=== PATIENT | male | born 1940 | race Caucasian/White ===

== ENCOUNTER → 2020-04-05 09:39 | Outpatient (BNVA) | payer MEDICARE, SELFPAY | PROVIDERS: Family Provider Urology; PCP Family Medicine; Visit Provider Urology | DX: N40.1 Benign prostatic hyperplasia with lower urinary tract symptoms (principal); R33.9 Retention of urine, unspecified | CPT/HCPCS: 81001 ==

== ENCOUNTER → 2021-09-10 08:12 | Outpatient (BNVA) | payer MEDICARE, SELFPAY | PROVIDERS: PCP Family Medicine; Visit Provider Nurse Practitioner Family | DX: N40.1 Benign prostatic hyperplasia with lower urinary tract symptoms (principal); R33.9 Retention of urine, unspecified | CPT/HCPCS: 81003 ==

== ENCOUNTER 2022-01-17 17:11 | Emergency (ER) | payer MEDICARE, SELFPAY ==
[2022-01-17 17:23] VITALS: BP 172/90; PULSE 71; RESP 18; TEMP 36.7; O2SAT 95
--- NOTE | 2022-01-17 17:29 | USR_ITS ---
PROCEDURE INFORMATION: Exam: US Duplex Left Lower Extremity Veins, Limited Exam date and time: 01/17/2022 7:33 PM Age: 81 years old Clinical indication: Pain; Leg, upper; Concern for dvt, tenderness along vein left thigh TECHNIQUE: Imaging protocol: Real-time Duplex ultrasound of the Left Lower Extremity with 2-D caldwell scale, color Doppler flow and spectral waveform analysis with image documentation. Limited exam focused on the left lower extremity veins. [place] [facility] [place] 01/26/2018 10:41 AM FINDINGS: Left deep veins: Noncompressible occlusive thrombus in the popliteal vein extending into the paired peroneal and posterior tibial calf veins with no color Doppler flow or augmentation. The common femoral, femoral, proximal profunda femoral veins are patent without thrombus. Left superficial veins: Unremarkable. Saphenofemoral junction is patent without thrombus. Soft tissues: Unremarkable. US/[place] [id number] IMPRESSION: Occlusive DVT in the left popliteal vein extending into the calf veins.
--- NOTE | 2022-01-17 17:32 | ED_ITS ---
HPI - General Adult General: Chief complaint: General Medical Stated complaint: left leg pain Time Seen by Provider: 01/17/22 17:29 History of Present Illness: 81-year-old male patient comes in today with left thigh pain. Patient reports that he has had pain and discomfort for about 5 days now in his thigh and traces it along a vein in his thigh. Patient does have a history of a DVT in his right leg. Patient appears well. Patient appears in no acute distress. Patient takes 81 mg aspirin a day. Associated symptoms: Deny chest pain or dyspnea Review of Systems General: Reports: 10 or more systems reviewed and unremarkable except in HPI and below Const: Denies: fever(s) Card: Denies: chest pain Resp: Denies: dyspnea Musc: Reports: extremity pain PFSH ED PFSH: Medical History BPH loc w urin obs/LUTS Chronic prostatitis Elevated PSA HTN (hypertension) Incomplete bladder emptying Family History Father , AT AGE 67 LUNG CANCER Cancer Mother , AT AGE 93 CAD (coronary artery disease) Social History Smoking and tobacco status: former smoker Alcohol intake: current Alcohol intake frequency: 0-2 Drinks per Day Adopted: No Caregiver/support person: No Lives independently: No Household members: spouse Marital status: Current occupational status: retired Physical Exam Const: COMMON NORMALS: alert HENMT: COMMON NORMALS: atraumatic HEAD & SCALP: atraumatic Neck/C-Spine: COMMON NORMALS: full ROM Resp: COMMON NORMALS: normal respiratory effort and clear to auscultation bilaterally AUSCULTATION: clear to auscultation bilaterally Cardio: COMMON NORMALS: regular rate and regular rhythm RATE: regular rate RHYTHM: regular rhythm GI: COMMON NORMALS: non-tender Extremity: LEFT LOWER EXTREMITY: Yes upper leg (Tenderness along a ropey vein) Left upper leg: Yes inspection, Yes palpation and Yes neurovascular exam and Yes lower leg (No calf pain, no popliteal angle pain) Left lower leg: Yes inspection, Yes palpation and Yes neurovascular exam Neuro: SENSORIUM/ORIENTATION: Yes alert Course Vital Signs: Vital signs: Vital Signs Temperature 98.1 F 01/17/22 17:23 Pulse Rate 71 01/17/22 17:23 Respiratory Rate 18 01/17/22 17:23 Blood Pressure 172/90 01/17/22 17: Pulse Oximetry 95 01/17/22 17:23 MDM - General Adult Medical Decision Making 81-year-old male comes in today with complaints of venous tenderness to the left upper leg. Patient reports he can palpate the tenderness along a vessel in his left upper leg. Patient has a history of previous DVT in the right leg though. Patient appears well. Patient appears in no acute distress. Vital signs are normal. Differential diagnosis includes but not limited to DVT, varicose veins, phlebitis. Ultrasound was completed on the left lower extremity and noted the popliteal occlusive venous thrombus. Patient was placed on Eliquis 10 mg and then as directed. Patient was recommended to follow-up with primary care for further treatment. Recommend return to the ER for new concerns such as chest pain, shortness of breath. Lab Data : 01/17/22 18:30 01/17/22 18:30 Radiology Impressions Venous Duplex 01/17/22 17:29 IMPRESSION: Occlusive DVT in the left popliteal vein extending into the calf veins. Laboratory Results WBC 8.7 10^3/uL (4.0-10.0) 01/17/22 18: RBC 4.93 10^6/uL (4.1-5.3) 01/17/22 18:30 Hgb 14.7 g/dL (11.7-16.6) 01/17/22 18: Hct 42.7 % (42.0-52.0) 01/17/22 18: MCV 86.6 fl (80-94) 01/17/22 18:30 MCH 29.8 pg (28.0-34.0) 01/17/22 18: MCHC 34.4 g/dL (30.0-36.0) 01/17/22 18: RDW 13.5 % (12.1-15.1) 01/17/22 18:30 Plt Count 220 10^3/cmm (130-400) 01/17/22 18: MPV 9.8 fL (7.4-10.4) 01/17/22 18: Neut % (Auto) 54.1 % 01/17/22 18:30 Lymph % (Auto) 31.2 % 01/17/22 18:30 [place] % (Auto) 8.8 % 01/17/22 18:30 Eos % (Auto) 4.8 % 01/17/22 18:30 Baso % (Auto) 0.6 % 01/17/22 18:30 Neut # (Auto) 4.73 10^3/uL (1.8-7.7) 01/17/22 18:30 Lymph # (Auto) 2.7 10^3/uL (0.8-4.8) 01/17/22 18:30 [place] # (Auto) 0.8 10^3/uL (0.2-0.9) 01/17/22 18:30 Eos # (Auto) 0.4 10^3/uL (0.0-0.8) 01/17/22 18:30 Baso # (Auto) 0.1 10^3/uL (0.0-0.1) 01/17/22 18:30 Nucleated RBC % (auto) 0 % 01/17/22 18:30 Nucleated RBCs # 0.0 /100WBC 01/17/22 18:30 Sodium 136 mmol/L (136-145) 01/17/22 18:30 Potassium 4.1 mmol/L (3.5-5.1) 01/17/22 18:30 Chloride 102 mmol/L (98-107) 01/17/22 18:30 Carbon Dioxide 22 mmol/L (22-29) 01/17/22 18:30 Anion Gap 16.1 (5-19) 01/17/22 18:30 BUN 16 mg/dL (8-23) 01/17/22 18:30 Creatinine 0.7 mg/dL (0.7-1.2) 01/17/22 18:30 GFR Calculation Not Reportable 01/17/22 18: Glucose 100 mg/dL (65-115) 01/17/22 18: Calculated Osmolality 283 mOsm/kg (285-295) L 01/17/22 18:30 Calcium 9.1 mg/dL (8.5-10.5) 01/17/22 18:30 Total Bilirubin 0.2 mg/dL (0.15-1.2) 01/17/22 18:30 AST 14 U/L (0-40) 01/17/22 18:30 ALT 18 U/L (0-41) 01/17/22 18:30 Alkaline Phosphatase 69 IU/L (40-130) 01/17/22 18:30 Total Protein 7.1 g/dL (6.6-8.7) 01/17/22 18:30 Albumin 4.2 g/dL (3.5-5.2) 01/17/22 18:30 Globulin 2.9 g/dL (1.3-4.6) 01/17/22 18:30 Discharge Plan Discharge Patient Disposition: Home Clinical Impression: Acute deep vein thrombosis (DVT) of popliteal vein of left lower extremity Condition: Stable Prescriptions: New [place] DVT-PE Treat 30D Start 5 mg (74 tabs) tablets,dose pack See Rx Instructions .ROUTE .COMPLEX Qty: 74 0RF Rx Instructions: orally per package directions No Action calcium carbonate [Calcium 600] 600 mg calcium (1,500 mg) tablet 600 mg PO DAILY 0RF citalopram 40 mg tablet 40 mg PO DAILY 0RF ascorbic acid (vitamin C) 1,000 mg tablet 1,000 mg PO DAILY 0RF Complete Multivitamin Tablet 1 tab PO DAILY 0RF metoprolol succinate 100 mg tablet extended release 24 hr 25 mg PO DAILY 0RF losartan 25 mg tablet 25 mg PO DAILY 0RF finasteride 5 mg tablet 5 mg PO DAILY Qty: 90 3RF alfuzosin 10 mg tablet extended release 24 hr 10 mg PO DAILY Qty: 90 3RF Discharge Orders: Discharge ED (Routine); Ordered 01/17/22 Ordered By: Eagle G[place]am Referrals: Iker Maya MD [Primary Care Provider] - Discharge Diet: Usual diet Discharge Activity: Increase activity as tolerated Patient Instructions: Deep Vein Thrombosis (ED) Activity Restrictions/Additional Instructions: With primaryHome and rest. Take medications as directed. Light activity. He care in 1 week for recheck. Return to ER for chest pain, increased shortness of breath, or new concerns. Coding Level of Care Code ED Metal Stamping Machine Operator for Anil Fwd Exam Detailed
[2022-01-17 18:42] LABS: Basophils # 0.1 10^3/uL (0.0-0.1); Basophils % 0.6 %; Eosinophils # 0.4 10^3/uL (0.0-0.8); Eosinophils % 4.8 %; Hematocrit 42.7 % (42.0-52.0); Hemoglobin 14.7 g/dL (11.7-16.6); Lymphocytes # 2.7 10^3/uL (0.8-4.8); Lymphocytes % 31.2 %; Mean Corpuscular HGB Conc 34.4 g/dL (30.0-36.0); Mean Corpuscular Hemoglobin 29.8 pg (28.0-34.0); Mean Corpuscular Volume 86.6 fl (80-94); Mean Platelet Volume 9.8 fL (7.4-10.4); Monocytes # 0.8 10^3/uL (0.2-0.9); Monocytes % 8.8 %; Neutrophils # 4.73 10^3/uL (1.8-7.7); Neutrophils % 54.1 %; Nucleated Red Blood Cells % 0 %; Platelet Count 220 10^3/cmm (130-400); Red Blood Count 4.93 10^6/uL (4.1-5.3); Red Cell Distribution Width 13.5 % (12.1-15.1); White Blood Count 8.7 10^3/uL (4.0-10.0)
[2022-01-17 18:57] LABS: Alanine Aminotransferase 18 U/L (0-41); Albumin Level 4.2 g/dL (3.5-5.2); Alkaline Phosphatase 69 IU/L (40-130); Anion Gap 16.1 (5-19); Aspartate Amino Transferase 14 U/L (0-40); Blood Urea Nitrogen 16 mg/dL (8-23); Calcium 9.1 mg/dL (8.5-10.5); Carbon Dioxide 22 mmol/L (22-29); Chloride 102 mmol/L (98-107); Globulin 2.9 g/dL (1.3-4.6); Glucose 100 mg/dL (65-115); Osmolality Calculated 283 mOsm/kg (285-295); Potassium 4.1 mmol/L (3.5-5.1); Sodium 136 mmol/L (136-145); Total Bilirubin 0.2 mg/dL (0.15-1.2); Total Protein 7.1 g/dL (6.6-8.7)
[2022-01-17] MEDS: apixaban 5 mg Tablet 10 MG PO (21:06)
== END 2022-01-17 21:07 | disposition home or self-care (01) ==
PROVIDERS: Emergency Provider Nurse Practitioner Family; PCP Family Medicine
DX: I82.432 Acute embolism and thrombosis of left popliteal vein (principal); I10 Essential (primary) hypertension; Z87.891 Personal history of nicotine dependence
CPT/HCPCS: 80053; 85025; 93971; 99283

== ENCOUNTER → 2022-05-21 14:46 | Outpatient (BNVA) | payer MEDICARE, SELFPAY | PROVIDERS: PCP Family Medicine; Visit Provider Urology | DX: N40.1 Benign prostatic hyperplasia with lower urinary tract symptoms (principal) | CPT/HCPCS: 36415; 51741; 51798; 81003; 84153; 99213 ==

== ENCOUNTER 2022-11-17 08:47 | Emergency (ER) | payer MEDICARE, SELFPAY ==
[2022-11-17 08:48] VITALS: BP 158/80; PULSE 56; RESP 14; TEMP 36; O2SAT 99; BMI 33.3
--- NOTE | 2022-11-17 09:17 | CTR_ITS ---
PROCEDURE INFORMATION: Exam: CT Head Without Contrast Exam date and time: 11/17/2022 9:29 AM Age: 81 years old Clinical indication: Dizziness; Additional info: Sudden onset dizziness TECHNIQUE: Imaging protocol: Computed tomography of the head without contrast. Radiation optimization: All CT scans at this facility use at least one of these dose optimization techniques: automated exposure control; mA and/or kV adjustment per patient size (includes targeted exams where dose is matched to clinical indication); or iterative reconstruction. REPORTING DATA: Count of CT and Cardiac NM exams in prior 12 months: This patient has received 0 known CTs and 0 known cardiac nuclear medicine studies in the 12 months prior to the current study. COMPARISON: No relevant prior studies available. RADIATION DOSE METRICS: Total DLP (mGy-cm): 1212.98 FINDINGS: Brain: Patchy hypoattenuation in the periventricular and subcortical white matter, consistent with chronic small vessel ischemia. No CT evidence of acute ischemia. No acute hemorrhage. No mass effect. Cerebral ventricles: No ventriculomegaly. Paranasal sinuses: Visualized sinuses are unremarkable. No fluid levels. Mastoid air cells: Visualized mastoid air cells are well aerated. Bones/joints: Unremarkable. No acute fracture. Soft tissues: Unremarkable. CT/CT head wo con* [id number] IMPRESSION: No acute intracranial abnormality. Please note that MRI is more sensitive for early changes of acute ischemia.
--- NOTE | 2022-11-17 09:20 | ED_ITS ---
HPI - Dizziness General: Chief Complaint: Dizziness Stated Complaint: DIZZY Time Seen by Provider: 11/17/22 08:52 History of Present Illness: HPI Narrative: Patient presents to the ER by EMS with complaints of dizziness. Patient states the dizziness began last night after he woke up after sleeping in his chair. And when the patient went to bed and woke up this morning it was even worse. Patient complains of nausea. Patient symptoms are worse when he moves around. Blood sugars 121 per EMS patient denies chest pain or dyspnea MD elicited complaint: dizziness Onset (ago): day(s) (Yesterday) Timing: awoke with symptoms Severity: mild Description: sense of movement History of similar symptoms: No Exacerbating factors: movement/ambulation Relieving factors: nothing Associated symptoms: Reports no associated symptoms and nausea; Denies chest pain, chills or palpitations Associated neuro symptoms: Reports no associated symptoms Review of Systems General: Reports: 10 or more systems reviewed and unremarkable except in HPI and below Const: Denies: fever(s) or chills Eyes: Denies: change in vision ENMT: Denies: throat pain or odynophagia Card: Denies: chest pain or palpitations Resp: Denies: dyspnea or productive cough GI: Reports: nausea; Denies: abdominal pain PFSH ED PFSH: Medical History BPH loc w urin obs/LUTS Chronic prostatitis Elevated PSA HTN (hypertension) Incomplete bladder emptying Family History Father , AT AGE 67 LUNG CANCER Cancer Mother , AT AGE 93 CAD (coronary artery disease) Social History Smoking and tobacco status: former smoker Alcohol intake: current Alcohol intake frequency: few times a week Substance/Drug Use: unknown Adopted: No Caregiver/support person: No Lives independently: No Household members: spouse Marital status: Current occupational status: retired Physical Exam Const: COMMON NORMALS: no acute distress, average body habitus, patient oriented x3, no limitations, healthy appearing, alert and well nourished HENMT: COMMON NORMALS: normocephalic, atraumatic, hearing grossly normal bilaterally, external ears normal, Normal external nose present and moist oral mucous membranes HEAD & SCALP: normocephalic and atraumatic NOSE: Normal external nose present EXTERNAL EAR: Yes external ears normal Eye: COMMON NORMALS: Equal, round and reactive pupils present, EOMs intact bilaterally, conjunctivae normal and no scleral icterus CONJUNCTIVA: Yes conjunctivae normal PUPIL: Yes Equal, round and reactive pupils present Neck/C-Spine: COMMON NORMALS: full ROM, no lymphadenopathy, supple, no meningeal signs, no JVD and Thyroid normal THYROID: Thyroid normal Chest: COMMONS NORMALS: normal inspection of the chest and normal palpation of entire chest wall Resp: COMMON NORMALS: normal respiratory effort, No retractions, No use of accessory muscles and clear to auscultation bilaterally AUSCULTATION: clear to auscultation bilaterally Cardio: COMMON NORMALS: no JVD, regular rate, regular rhythm, S1 normal heart sound present and S2 normal heart sound present RATE: regular rate RHYTHM: regular rhythm HEART SOUNDS: S1 normal heart sound present and S2 normal heart sound present GI: COMMON NORMALS: Normal to inspection, nondistended, normoactive bowel sounds present, Soft to palpation, non-tender, No hepatosplenomegaly present and no masses PALPATION: Yes Soft to palpation and Yes No hepatosplenomegaly present : COMMON NORMALS: Yes no CVA tenderness BLADDER/KIDNEY EXAM: Yes no CVA tenderness Back/Pelvis: COMMON NORMALS: no CVA tenderness Neuro: COMMON NORMALS: patient oriented x3, CN's II-XII intact bilaterally, moves all extremities, no focal motor deficits and no sensory deficits noted SENSORIUM/ORIENTATION: Yes alert MENINGEAL SIGNS: Yes no meningeal signs Course Vital Signs: Vital signs: Vital Signs Temperature 96.8 F L 11/17/22 08:48 Pulse Rate 63 11/17/22 12:37 Respiratory Rate 18 11/17/22 12:37 Blood Pressure 122/83 11/17/22 12:37 Pulse Oximetry 95 11/17/22 12:37 Oxygen Delivery Me thod Room Air 11/17/22 08:48 MDM - Dizziness Medical Decision Making Patient presents to the with vertigo. Patient has no neurologic localizing findings. Lab work was obtained CBC was benign, CMP showed sodium of 126, head CT was no intracranial abnormality Differential Diagnosis Likely benign paroxysmal positional vertigo; Unlikely adverse reaction to drug, orthostatic hypotension, vertebral basilar insufficiency, cerebrovascular accident, acute vestibular neuronitis or transient cerebral ischemia Medical Records I reviewed the patient's medical records. Lab Data I reviewed the patient's lab results. 11/17/22 09:35 11/17/22 09:[address] 11/17/22 09:17 IMPRESSION: No acute intracranial abnormality. Please note that MRI is more sensitive for early changes of acute ischemia. Laboratory Results WBC 6.3 10^3/uL (4.0-10.0) 11/17/22 09:35 RBC 4.61 10^6/uL (4.1-5.3) 11/17/22 09:35 Hgb 13.9 g/dL (11.7-16.6) 11/17/22 09:35 Hct 42.7 % (42.0-52.0) 11/17/22 09:35 MCV 92.6 fl (80-94) 11/17/22 09:35 MCH 30.2 pg (28.0-34.0) 11/17/22 09:35 MCHC 32.6 g/dL (30.0-36.0) 11/17/22 09:35 RDW 13.3 % (12.1-15.1) 11/17/22 09:35 Plt Count 210 10^3/cmm (130-400) 11/17/22 09:35 MPV 10.0 fL (7.4-10.4) 11/17/22 09:35 Neut % (Auto) 58.3 % 11/17/22 09:35 Lymph % (Auto) 25.2 % 11/17/22 09:35 [place] % (Auto) 10.6 % 11/17/22 09:35 Eos % (Auto) 4.8 % 11/17/22 09:35 Baso % (Auto) 0.8 % 11/17/22 09:35 Neut # (Auto) 3.68 10^3/uL (1.8-7.7) 11/17/22 09:35 Lymph # (Auto) 1.6 10^3/uL (0.8-4.8) 11/17/22 09:35 [place] # (Auto) 0.7 10^3/uL (0.2-0.9) 11/17/22 09:35 Eos # (Auto) 0.3 10^3/uL (0.0-0.8) 11/17/22 09:35 Baso # (Auto) 0.1 10^3/uL (0.0-0.1) 11/17/22 09:35 Nucleated RBC % (auto) 0 % 11/17/22 09:35 Nucleated RBCs # 0.0 /100WBC 11/17/22 09:35 PT 13.90 SECONDS (12.1-14.9) 11/17/22 09:35 INR 1.03 (0.8-1.2) 11/17/22 09:35 Sodium 126 mmol/L (136-145) L 11/17/22 09:35 Potassium 4.1 mmol/L (3.5-5.1) 11/17/22 09:35 Chloride 95 mmol/L (98-107) L 11/17/22 09:35 Carbon Dioxide 23 mmol/L (22-29) 11/17/22 09:35 Anion Gap 12.1 (5-19) 11/17/22 09:35 BUN 25 mg/dL (8-23) H 11/17/22 09:35 Creatinine 0.8 mg/dL (0.7-1.2) 11/17/22 09:35 GFR Calculation Not Reportable 11/17/22 09:35 Glucose 145 mg/dL (65-115) H 11/17/22 09:35 Calculated Osmolality 269 mOsm/kg (285-295) L 11/17/22 09:35 Calcium 8.6 mg/dL (8.5-10.5) 11/17/22 09:35 Total Bilirubin 0.3 mg/dL (0.15-1.2) 11/17/22 09:35 AST 15 U/L (0-40) 11/17/22 09:35 ALT 18 U/L (0-41) 11/17/22 09:35 Alkaline Phosphatase 62 U/L (40-130) 11/17/22 09:35 Total Protein 7.0 g/dL (6.6-8.7) 11/17/22 09:35 Albumin 4.0 g/dL (3.5-5.2) 11/17/22 09:35 Globulin 3.0 g/dL (1.3-4.6) 11/17/22 09:35 Urine Color Yellow (Yellow) 11/17/22 10:24 Urine Appearance Clear (CLEAR) 11/17/22 10:24 Urine pH 6 (5-7) 11/17/22 10:24 Ur Specific [place] 1.020 (1.005-1.030) 11/17/22 10:24 Urine Protein Neg (Negative) 11/17/22 10:24 Urine Glucose (UA) Norm (Normal) 11/17/22 10:24 Urine Ketones Negative (Negative) 11/17/22 10:24 Urine Blood Trace (Negative) H 11/17/22 10:24 Urine Nitrate Negative (Negative) 11/17/22 10:24 Urine Bilirubin Neg (Negative) 11/17/22 10:24 Urine Urobilinogen Norm mg/dL (Negative) 11/17/22 10:24 Ur Leukocyte Esterase Negative (Negative) 11/17/22 10:24 Urine RBC 0-4 /hpf (0-2) H 11/17/22 10:24 Urine WBC None /hpf (0-5) 11/17/22 10:24 Ur Squamous Epith Cells None /hpf (0-5) 11/17/22 10:24 Amorphous Sediment Not Reportable 11/17/22 10:24 Urine Bacteria None /hpf (NONE) 11/17/22 10:24 Discharge Plan Discharge Patient Disposition: Home Clinical Impression: Vertigo, Acute hyponatremia Condition: Stable Prescriptions: No Action citalopram 40 mg tablet 40 mg PO QAM ascorbic acid (vitamin C) 1,000 mg tablet 1,000 mg PO DAILY multivitamin Tablet 1 tab PO DAILY losartan 50 mg tablet 50 mg PO QPM metoprolol succinate 50 mg tablet extended release 24 hr 50 mg PO QPM Tylenol Ex Str Rapid Release 500 mg Tablet 500 - 1,000 mg PO Q6H PRN (Reason: Pain) Calcium 600 + D(3) 600 mg-10 mcg (400 unit) Tablet 2 tab PO DAILY Eliquis 5 mg tablet 5 mg PO BID finasteride 5 mg tablet 5 mg PO QPM alfuzosin 10 mg tablet extended release 24 hr 10 mg PO QPM Discharge Orders: Discharge ED (Routine); Ordered 11/17/22 Ordered By: Nate Calvillo Referrals: Iker Maya MD [Primary Care Provider] - 1 week Patient Instructions: Hyponatremia (ED), Vertigo (DC) Coding Level of Care Code ED Supervisor Car Installations for Anil Schaeffer
[2022-11-17 10:02] LABS: Basophils # 0.1 10^3/uL (0.0-0.1); Basophils % 0.8 %; Eosinophils # 0.3 10^3/uL (0.0-0.8); Eosinophils % 4.8 %; Hematocrit 42.7 % (42.0-52.0); Hemoglobin 13.9 g/dL (11.7-16.6); Lymphocytes # 1.6 10^3/uL (0.8-4.8); Lymphocytes % 25.2 %; Mean Corpuscular HGB Conc 32.6 g/dL (30.0-36.0); Mean Corpuscular Hemoglobin 30.2 pg (28.0-34.0); Mean Corpuscular Volume 92.6 fl (80-94); Monocytes # 0.7 10^3/uL (0.2-0.9); Monocytes % 10.6 %; Neutrophils # 3.68 10^3/uL (1.8-7.7); Neutrophils % 58.3 %; Nucleated Red Blood Cells % 0 %; Platelet Count 210 10^3/cmm (130-400); Red Blood Count 4.61 10^6/uL (4.1-5.3); Red Cell Distribution Width 13.3 % (12.1-15.1); White Blood Count 6.3 10^3/uL (4.0-10.0)
[2022-11-17 10:25] LABS: INR 1.03 (0.8-1.2)
[2022-11-17 10:36] LABS: Alanine Aminotransferase 18 U/L (0-41); Alkaline Phosphatase 62 U/L (40-130); Anion Gap 12.1 (5-19); Aspartate Amino Transferase 15 U/L (0-40); Blood Urea Nitrogen 25 mg/dL (8-23); Calcium 8.6 mg/dL (8.5-10.5); Carbon Dioxide 23 mmol/L (22-29); Chloride 95 mmol/L (98-107); Glucose 145 mg/dL (65-115); Osmolality Calculated 269 mOsm/kg (285-295); Potassium 4.1 mmol/L (3.5-5.1); Sodium 126 mmol/L (136-145); Total Bilirubin 0.3 mg/dL (0.15-1.2)
[2022-11-17 10:51] LABS: Add Urine Microscopic? YES; Bilirubin Urine Neg (Negative); Blood Urine Trace (Negative); Glucose Urine UA Norm (Normal); Ketones Urine Negative (Negative); Leukocyte Esterase Urine Negative (Negative); Nitrate Urine Negative (Negative); Protein Urine Neg (Negative); RBC Urine 0-4 /hpf (0-2); Urine Appearance Clear (CLEAR); Urine Color Yellow (Yellow); Urobilinogen Urine Norm (Negative); pH Urine 6 (5-7)
--- NOTE | 2022-11-17 11:32 | PC.PHAR ---
PT STATES HE TAKES CARE OF HIS OWN MEDICATIONS-PT STATES HE TAKES A BLOOD PRESSURE MEDICATION 2 TABS IN THE AM AND 1 TAB HS AND A CHOLESTEROL MEDICATION 1/2 TAB HS PT STATES HE IS UNSURE OF THE NAMES BUT STATES HIS SISTER SAAD WOULD BE ABLE TO TELL ME THE NAMES-PTS SISTER SAAD READ THE NAMES OF THE MEDICATIONS-
[2022-11-17 12:37] VITALS: BP 122/83; PULSE 63; RESP 18; O2SAT 95
== END 2022-11-17 12:37 | disposition home or self-care (01) ==
PROVIDERS: Emergency Provider Emergency Medicine; PCP Family Medicine
DX: R42 Dizziness and giddiness (principal); E87.1 Hypo-osmolality and hyponatremia; Z79.01 Long term (current) use of anticoagulants; I10 Essential (primary) hypertension; Z87.891 Personal history of nicotine dependence
CPT/HCPCS: 70450; 80053; 81001; 85025; 85610; 99285

== ENCOUNTER 2023-06-30 13:02 | Outpatient (CLI) | payer MEDICARE, SELFPAY ==
--- NOTE | 2023-06-30 13:16 | MM_ITS ---
WS: [id number] BILATERAL 3D TOMOSYNTHESIS DIGITAL DIAGNOSTIC MAMMOGRAPHY WITH CAD CLINICAL INFORMATION: RT BREAST PAIN HISTORY: RIGHT breast pain COMPARISON: None. TECHNIQUE: Bilateral CC, MLO, and ML views. FINDINGS: Scattered fibroglandular densities bilaterally. Increased subareolar tissue deep to the RIGHT greater than LEFT areola. Palpable marker overlying the RIGHT areola. RIGHT subareolar parenchymal tissue pa rtially compresses out on the spot compression view. Ultrasound of this area is pending. ULTRASOUND BREAST RIGHT TECHNIQUE: Ultrasound right breast focused area of concern. CLINICAL INFORMATION: RT BREAST PAIN FINDINGS: Ultrasound RIGHT breast deep to the areola. Shadowing parenchymal tissue deep to the RIGHT areola com patible with gynecomastia. No focal cystic or solid lesions to target for biopsy. IMPRESSION: MM/[place] [id number] BI-RADS: 2-Benign FOLLOW UP: See Report
== END 2023-06-30 13:03 | disposition home or self-care (01) ==
LOC: RAD 13:03
PROVIDERS: PCP Family Medicine; Visit Provider Family Medicine
DX: N64.4 Mastodynia (principal)
CPT/HCPCS: 76642; 77062; G0279

== ENCOUNTER 2023-07-18 00:27 | Emergency (ER) | payer MEDICARE, SELFPAY ==
[2023-07-18 00:30] VITALS: BP 114/82; PULSE 86; RESP 20; TEMP 37; O2SAT 97; BMI 33.3
--- NOTE | 2023-07-18 00:37 | XRR_ITS ---
PROCEDURE INFORMATION: Exam: XR Chest Exam date and time: 07/18/2023 12:46 AM Age: 82 years old Clinical indication: Cough and dyspnea and fever; Additional info: Cough, dyspnea, fever TECHNIQUE: Imaging protocol: Radiologic exam of the chest. Views: 1 view. COMPARISON: CR XR chest 2V* [id number] 10/25/2021 10:31 AM FINDINGS: Lungs: [id number] COPD. Diffuse interstitial lung scarring again seen. No consolidation. Mild venous congestion. Question lung base edema. Pleural spaces: Question minute pleural effusions. Heart/Mediastinum: The heart is mildly enlarged. Advanced diffuse vascular calcification noted. Bones/joints: Unremarkable. XR/XR chest 1V portable [id number] IMPRESSION: 1. Large heart with minimal venous congestion likely. 2. Question very small bilateral pleural effusions. Findings have progressed mildly from 10/25/2021.
[2023-07-18 00:43] LABS: Basophils % 0.4 %; Eosinophils # 0.7 10^3/uL (0.0-0.8); Eosinophils % 8.2 %; Hematocrit 42.4 % (37-53); Lymphocytes # 1.3 10^3/uL (0.8-4.8); Lymphocytes % 14.6 %; Mean Corpuscular HGB Conc 33.5 g/dL (30-55); Mean Corpuscular Hemoglobin 30.1 pg (27-33); Monocytes # 0.6 10^3/uL (0.2-0.9); Neutrophils # 5.96 10^3/uL (1.8-7.7); Neutrophils % 69.4 %; Nucleated Red Blood Cells % 0 %; Platelet Count 240 10^3/cmm (157-399); Red Blood Count 4.71 10^6/uL (3.85-5.65); Red Cell Distribution Width 13.5 % (12.1-15.1); White Blood Count 8.57 10^3/uL (3.29-11.43)
[2023-07-18 01:03] LABS: Alanine Aminotransferase 17 U/L (0-41); Albumin Level 3.9 g/dL (3.5-5.2); Alkaline Phosphatase 68 U/L (40-130); Anion Gap 18.1 (5-19); Aspartate Amino Transferase 16 U/L (0-40); Blood Urea Nitrogen 19 mg/dL (8-23); Carbon Dioxide 22 mmol/L (22-29); Chloride 98 mmol/L (98-107); Creatinine Clr Calc Pharmacy 80.4113; Globulin 3.3 g/dL (1.3-4.6); Glucose 215 mg/dL (65-115); Osmolality Calculated 287 mOsm/kg (285-295); Potassium 4.1 mmol/L (3.5-5.1); Sodium 134 mmol/L (136-145); Total Bilirubin 0.3 mg/dL (0.15-1.2); Total Protein 7.2 g/dL (6.6-8.7)
[2023-07-18 01:23] LABS: Influenza A by IFA negative (Negative); Influenza B by IFA negative (Negative); SARS Covid-2 Antigen negative (Negative)
--- NOTE | 2023-07-18 01:29 | W.ED.SOB ---
HPI - SOB/Dyspnea General: Chief Complaint: Shortness of Breath/Dyspnea Stated Complaint: Flu like symptoms Time Seen by Provider: 07/18/23 00:38 History of Present Illness: HPI Narrative: Patient brought in by EMS with flulike symptoms such as shortness of breath fever cough chills. Patient states he is all started today. Patient is currently being treated for UTI and is on Macrobid for this. 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 He also said he has not had a fever off and on the breaks with Tylenol. Patient does not have any history of having breathing treatments or needing oxygen at home. Review of Systems General: Reports: 10 or more systems reviewed and unremarkable except in HPI and below PFSH ED PFSH: Medical History BPH loc w urin obs/LUTS HTN (hypertension) Elevated PSA Incomplete bladder emptying Chronic prostatitis Family History Father , AT AGE 67 LUNG CANCER Cancer Mother , AT AGE 93 CAD (coronary artery disease) Social History Smoking and tobacco/nicotine status: former use of tobacco/nicotine Alcohol intake: current Alcohol intake frequency: few times a week Substance/Drug Use: unknown Adopted: No Caregiver/support person: No Lives independently: No Household members: spouse Marital status: Current occupational status: retired Physical Exam Const: COMMON NORMALS: no acute distress, average body habitus, patient oriented x3, no limitations, healthy appearing, alert and well nourished HENMT: COMMON NORMALS: normocephalic, atraumatic, hearing grossly normal bilaterally, external ears normal, Normal external nose present, moist oral mucous membranes and oropharynx normal HEAD & SCALP: normocephalic and atraumatic NOSE: Normal external nose present EXTERNAL EAR: Yes external ears normal Neck/C-Spine: COMMON NORMALS: no JVD Chest: COMMONS NORMALS: normal inspection of the chest and normal palpation of entire chest wall Resp: COMMON NORMALS: normal respiratory effort, No retractions, No use of accessory muscles and clear to auscultation bilaterally AUSCULTATION: clear to auscultation bilaterally Cardio: COMMON NORMALS: no JVD, regular rate, regular rhythm, S1 normal heart sound present, S2 normal heart sound present, No gallops present (Cardio), No clicks present (Cardio), No murmurs present (Cardio) and No rub (Cardio) RATE: regular rate RHYTHM: regular rhythm HEART SOUNDS: S1 normal heart sound present and S2 normal heart sound present GI: COMMON NORMALS: Normal to inspection, nondistended, normoactive bowel sounds present, Soft to palpation, non-tender, No hepatosplenomegaly present and no masses PALPATION: Yes Soft to palpation and Yes No hepatosplenomegaly present Neuro: COMMON NORMALS: patient oriented x3 SENSORIUM/ORIENTATION: Yes alert Course Vital Signs: Vital signs: Vital Signs Temperature 98.6 F 07/18/23 00:30 Pulse Rate 71 07/18/23 02:46 Respiratory Rate 20 H 07/18/23 00:30 Blood Pressure 138/61 07/18/23 02:46 Pulse Oximetry 95 07/18/23 02:46 Oxygen Delivery Me thod Room Air 07/18/23 02:46 Oxygen Flow Rate 2 07/18/23 00:30 MDM - SOB/Dyspnea Medical Decision Making Presents to the ER with complaints of shortness of breath. Patient had chest x-ray which showed minimal venous congestion, questionable very small bilateral pleural effusions, lab work including influenza and COVID test which were all essentially negative. Patient oxygen saturation was 95% or above on room air. Patient will be discharged home to follow-up with his PCP for further evaluation and treatment. Differential Diagnosis Unlikely acute exacerbation of chronic obstructive airways disease, congestive heart failure, community acquired pneumonia, asthma with exacerbation or pulmonary embolism Medical Records I reviewed the patient's medical records. Lab Data I reviewed the patient's lab results. 07/18/23 00:15 07/18/23 00:15 Labs/Radiology: Radiology Impressions Chest X-Ray 07/18/23 00:37 IMPRESSION: 1. Large heart with minimal venous congestion likely. 2. Question very small bilateral pleural effusions. Findings have progressed mildly from 10/25/2021. Laboratory Results WBC 8.57 10^3/uL (3.29-11.43) 07/18/23 00:15 RBC 4.71 10^6/uL (3.85-5.65) 07/18/23 00:15 Hgb 14.20 g/dL (11.27-16.99) 07/18/23 00:15 Hct 42.4 % (37-53) 07/18/23 00:15 MCV 90.0 fl (82-101) 07/18/23 00:15 MCH 30.1 pg (27-33) 07/18/23 00:15 MCHC 33.5 g/dL (30-55) 07/18/23 00:15 RDW 13.5 % (12.1-15.1) 07/18/23 00:15 Plt Count 240 10^3/cmm (157-399) 07/18/23 00:15 MPV 10.0 fL (7.4-10.4) 07/18/23 00:15 Neut % (Auto) 69.4 % 07/18/23 00:15 Lymph % (Auto) 14.6 % 07/18/23 00:15 [place] % (Auto) 7.0 % 07/18/23 00:15 Eos % (Auto) 8.2 % 07/18/23 00:15 Baso % (Auto) 0.4 % 07/18/23 00:15 Neut # (Auto) 5.96 10^3/uL (1.8-7.7) 07/18/23 00:15 Lymph # (Auto) 1.3 10^3/uL (0.8-4.8) 07/18/23 00:15 [place] # (Auto) 0.6 10^3/uL (0.2-0.9) 07/18/23 00:15 Eos # (Auto) 0.7 10^3/uL (0.0-0.8) 07/18/23 00:15 Baso # (Auto) 0.0 10^3/uL (0.0-0.1) 07/18/23 00:15 Nucleated RBC % (auto) 0 % 07/18/23 00:15 Nucleated RBCs # 0.0 /100WBC 07/18/23 00:15 Sodium 134 mmol/L (136-145) L 07/18/23 00:15 Potassium 4.1 mmol/L (3.5-5.1) 07/18/23 00:15 Chloride 98 mmol/L (98-107) 07/18/23 00:15 Carbon Dioxide 22 mmol/L (22-29) 07/18/23 00:15 Anion Gap 18.1 (5-19) 07/18/23 00:15 BUN 19 mg/dL (8-23) 07/18/23 00:15 Creatinine 1.0 mg/dL (0.7-1.2) 07/18/23 00:15 GFR Calculation Not Reportable 07/18/23 00:15 Glucose 215 mg/dL (65-115) H 07/18/23 00:15 Calculated Osmolality 287 mOsm/kg (285-295) 07/18/23 00:15 Calcium 9.0 mg/dL (8.5-10.5) 07/18/23 00:15 Total Bilirubin 0.3 mg/dL (0.15-1.2) 07/18/23 00:15 AST 16 U/L (0-40) 07/18/23 00:15 ALT 17 U/L (0-41) 07/18/23 00:15 Alkaline Phosphatase 68 U/L (40-130) 07/18/23 00:15 Total Protein 7.2 g/dL (6.6-8.7) 07/18/23 00:15 Albumin 3.9 g/dL (3.5-5.2) 07/18/23 00:15 Globulin 3.3 g/dL (1.3-4.6) 07/18/23 00:15 Influenza Type A Ag negative (Negative) 07/18/23 00:59 Influenza Type B Ag negative (Negative) 07/18/23 00:59 SARS-CoV-2 Ag (Rapid) negative (Negative) 07/18/23 00:59 All radiology interpretation(s) finalized by discharge Discharge Plan Discharge Patient Disposition: Home Clinical Impression: Shortness of breath Condition: Stable Prescriptions: No Action citalopram 40 mg tablet 40 mg PO QAM ascorbic acid (vitamin C) 1,000 mg tablet 1,000 mg PO DAILY multivitamin Tablet 1 tab PO DAILY losartan 50 mg tablet 50 mg PO QPM metoprolol succinate 50 mg tablet extended release 24 hr 50 mg PO QPM Tylenol Ex Str Rapid Release 500 mg Tablet 500 - 1,000 mg PO Q6H PRN (Reason: Pain) Calcium 600 + D(3) 600 mg-10 mcg (400 unit) Tablet 2 tab PO DAILY Eliquis 5 mg tablet 5 mg PO BID finasteride 5 mg tablet 5 mg PO QPM alfuzosin 10 mg tablet extended release 24 hr 10 mg PO QPM Discharge Orders: Discharge ED (Routine); Ordered 07/18/23 Ordered By: Nate Calvillo Referrals: Iker Maya MD [Primary Care Provider] - 1 week Patient Instructions: Shortness of Breath (ED) Activity Restrictions/Additional Instructions: Your oxygen saturation stayed good on room air in the emergency room. Your lab work including your influenza and COVID swabs were negative. Chest x-ray just showed minimal amount of fluid at the base of your lungs. Please follow-up with your family practice physician in the next 7 to 10 days for further evaluation and treatment as needed. Coding Level of Care Code ED Director Of Compliance for Anil Schaeffer
[2023-07-18 02:46] VITALS: BP 138/61; PULSE 71; O2SAT 95
[2023-07-18 03:17] VITALS: BP 128/56; PULSE 66; RESP 18; O2SAT 96
== END 2023-07-18 03:18 | disposition home or self-care (01) ==
PROVIDERS: Emergency Provider Emergency Medicine; PCP Family Medicine
DX: R06.02 Shortness of breath (principal); Z79.01 Long term (current) use of anticoagulants; Z11.52 Encounter for screening for COVID-19; Z87.891 Personal history of nicotine dependence; I10 Essential (primary) hypertension
CPT/HCPCS: 71045; 80053; 85025; 87426; 87804; 99284

== ENCOUNTER 2023-08-07 12:13 | Outpatient (CLI) | payer MEDICARE, SELFPAY ==
--- NOTE | 2023-08-07 12:20 | CT_ITS ---
WS: [id number] CT CHEST ANGIOGRAPHY WITH REFORMATS HISTORY: ELEVATED D DIMER TECHNIQUE: Contiguous axial images are obtained through the chest during arterial injection of intrav enous contrast. Images are reconstructed to evaluate the pulmonary arteries. MIP imaging also reviewe d. All CT scans at [facility] [place] use at least one of these dose optimization techniques: automat ed exposure control; mA and/or kV adjustment per patient size (includes targeted exams where dose is matched to clinical indication); or iterative reconstruction. CONTRAST: Omnipaque 350; 100 mL IV. DLP: 523.43 mGy.cm COMPARISON: None available. Adequate but limited opacification of the pulmonary arteries. Centrally there is no pulmonary embolis m. Beyond the lobar branches the opacification becomes limited due to timing of the injection bolus. Pulmonary artery is mildly enlarged. Mild atherosclerosis thoracic aorta. Normal size heart. No RIGHT heart strain. No pericardial or pleural effusions. Poor inspiration resulting in areas of atelectasi s. There is interstitial thickening bilaterally which may be chronic. Superimposed groundglass attenu ation bilaterally. Indeterminate mediastinal and hilar lymph nodes. Number of lymph nodes is increase d. Largest lymph nodes in the hilar region. RIGHT hilar lymph node measures 1.6 cm. No adrenal mass. Reidentified are several low-attenuation masses within the liver consistent with cys ts which have been previously described. Small hiatal hernia. IMPRESSION: 1. No pulmonary embolism through the lobar branches. 2. Mild peripheral interstitial fibrosis. Superimposed groundglass attenuation suggesting acute super imposed pneumonitis. 3. Mild pulmonary hypertension. 4. Mildly enlarged mediastinal and hilar lymph nodes. Suspect reactive lymphadenopathy.
[2023-08-07] MEDS: iohexol 350 mg/mL 500 mL Btl (per mL) IV (12:56)
== END 2023-08-07 12:14 | disposition home or self-care (01) ==
LOC: RAD 12:13
PROVIDERS: PCP Family Medicine; Visit Provider Family Medicine
DX: R79.1 Abnormal coagulation profile (principal); J84.10 Pulmonary fibrosis, unspecified; I27.20 Pulmonary hypertension, unspecified; R59.0 Localized enlarged lymph nodes
CPT/HCPCS: 71275; Q9967

== ENCOUNTER 2023-08-13 12:11 | Outpatient (CLI) | payer MEDICARE, SELFPAY ==
--- NOTE | 2023-08-13 12:19 | USCV_ITS ---
Kedar Hawkins Age: 82 Gender: M : 1940 Exam Date: 08/13/2023 12:33 Ordering Phys: Iker Maya MD Technologist: CT [place]am [place] [facility] [place]: cp BP: 148 / 64 HR: 56 Rhythm: Sinus Technical Quality: Adequate MEASUREMENTS (Male / Female) Normal Values 2D ECHO LVOT Diameter 2.2 cm LV Ejection Fraction MOD 2C 64.0 % LV Ejection Fraction 2C AL 64.2 % LA Diameter 4.8 cm Aorta at Sinotubular Diameter 2.2 cm M-MODE Aortic Annulus Diameter 4.1 cm LA Ao Ratio MM 1.4 MV E Point Septal Separation 1.0 cm DOPPLER AV Peak Velocity 139.0 cm/s LVOT Peak Velocity 125.0 cm/s AV Area Cont Eq vti 4.0 cm squared AV Area Cont Eq pk 3.3 cm squared MV E' Velocity 11.0 cm/s TR Peak Velocity 88.0 cm/s TR Peak Gradient 3.1 mmHg TV Peak E Velocity 85.0 cm/s Right Atrial Pressure 3.0 mmHg Pulmonary Artery Systolic Pressu 6.1 mmHg PV Peak Velocity 124.0 cm/s FINDINGS Left Ventricle Left ventricle is normal in size. LV systolic function is normal with EF of 55 to 60%. No regional wall motion abnormalities are seen. Grade 1 diastolic dysfunction Right Ventricle Normal in size and function. Right Atrium Normal in size Left Atrium Normal in size Mitral Valve Moderate mitral annular calcification is seen. Aortic Valve Aortic valve is thickened. No significant stenosis or regurgitation seen. Tricuspid Valve Mild tricuspid regurgitation. Insufficient TR jet to calculate RVSP. Pulmonic Valve Not well-visualized. Pericardium Normal Aorta Normal in size IVC Not well visualized CONCLUSIONS LV systolic function is normal with EF of 55 to 60%. Grade 1 diastolic dysfunction Mild tricuspid regurgitation. No comparison studies are available. Bucky Oden MD (Electronically Signed) Final Date: 29 August 2023 14:57 S
== END 2023-08-13 12:12 | disposition home or self-care (01) ==
LOC: RAD 12:11
PROVIDERS: PCP Family Medicine; Visit Provider Family Medicine
DX: I07.1 Rheumatic tricuspid insufficiency (principal)
CPT/HCPCS: 93306

== ENCOUNTER 2023-09-24 10:59 | Outpatient (CLI) | payer MEDICARE, SELFPAY | END 2023-09-24 11:00 | disposition home or self-care (01) | PROVIDERS: PCP Family Medicine; Visit Provider Family Medicine | DX: R06.09 Other forms of dyspnea (principal) | CPT/HCPCS: 94010; 94726; 94729 ==

== ENCOUNTER 2023-10-04 08:01 | Emergency (ER) | payer MEDICARE, SELFPAY ==
[2023-10-04 08:16] VITALS: BP 159/72; PULSE 86; RESP 16; TEMP 36.9; O2SAT 94; BMI 33.3
--- NOTE | 2023-10-04 08:32 | XRR_ITS ---
PROCEDURE INFORMATION: Exam: XR Chest Exam date and time: 10/04/2023 8:40 AM Age: 82 years old Clinical indication: Dyspnea and shortness of breath; Additional info: Cough TECHNIQUE: Imaging protocol: Radiologic exam of the chest. Views: 1 view. COMPARISON: CR XR chest 2V* [id number] 09/10/2023 10:40 AM FINDINGS: Lungs: Bibasilar atelectasis. There is bilateral apical fibrotic changes. Mild bilateral apical predominant emphysematous changes. Pleural spaces: There is mild bilateral pleural effusions with interstitial thickening, suggestive of interstitial edema. Heart/Mediastinum: There is cardiomegaly. Bones/joints: There is mild degenerative disease of bilateral acromioclavicular and bilateral joints. XR/XR chest 1V portable [id number] IMPRESSION: Interstitial pulmonary edema with small bilateral pleural effusions.
--- NOTE | 2023-10-04 08:34 | ED_ITS ---
HPI - General Adult 2 General: Chief complaint: General Medical Stated complaint: chills, shakes, sob Time Seen by Provider: 10/04/23 08:17 Source: patient Mode of arrival: ambulatory Limitations: no limitations History of Present Illness: This patient decided to come to the emergency department this morning because he woke up with what he thought were some chills and shakiness and did not feel well which she describes as malaise. He denies any known exposure to infectious disease other than he was in a walk-in clinic yesterday across from someone who is coughing. He has had mild cough for the last couple of days. He denies any documented fevers. He was having some dysuria symptoms and he called prostate problems yesterday and was seen in the walk-in clinic and given a prescription for Macrodantin. He also has some dental caries and has having several extractions done on Friday and has been on amoxicillin for the last 5 days in anticipation of that procedure. He states he has no chest pain, no abdominal pain, nausea, vomiting, diarrhea etc. He states that he has a history of blood clots and takes Eliquis for that condition. He also takes Lasix for a fluid retention but denies any history of congestive heart failure or coronary artery disease. No recent travel no visitors who have been ill. Associated symptoms: Reports malaise and rash (Chronic bilateral lower extremity rash); Deny chest pain, dyspnea, headache(s), nausea, palpitations or vomiting Review of Systems 2 Const: Reports: chills and malaise; Denies: fever(s), change in appetite or change in weight Eyes: Denies: change in vision ENMT: Denies: throat pain, odynophagia, nasal discharge or nasal congestion Card: Denies: chest pain, palpitations, irregular heart rhythm or edema Resp: Reports: non-productive cough; Denies: dyspnea GI: Denies: abdominal pain, nausea, vomiting or diarrhea : Reports: urinary frequency and urinary hesitancy; Denies: flank pain, difficulty urinating, oliguria or urinary incontinence Musc: Denies: neck pain, back pain, extremity pain or extremity swelling Skin/Breast: Reports: rash (Chronic bilateral lower extremity rash) Neuro: Denies: headache(s), numbness in extremities or weakness in extremities Endo: Denies: polyuria, polydipsia or tired all the time PFSH ED 2 PFSH: Medical History BPH loc w urin obs/LUTS HTN (hypertension) Elevated PSA Incomplete bladder emptying Chronic prostatitis Family History Father , AT AGE 67 LUNG CANCER Cancer Mother , AT AGE 93 CAD (coronary artery disease) Social History Smoking and tobacco/nicotine status: former use of tobacco/nicotine Alcohol intake: current Alcohol intake frequency: few times a week Substance/Drug Use: unknown Adopted: No Caregiver/support person: No Lives independently: No Household members: spouse Marital status: Current occupational status: retired Physical Exam 2 Narrative: EXAM NARRATIVE: Patient is alert makes good eye contact speaks in complete sentences and appears to be comfortable. Const: COMMON NORMALS: no acute distress, patient oriented x3 and alert G ENERAL APPEARANCE: cooperative and comfortable NUTRITIONAL APPEARANCE: o verweight HENMT: COMMON NORMALS: normocephalic, atraumatic, Normal nasal mucous membranes and turbinates present and moist oral mucous membranes HEAD & SCALP: normocephalic and atraumatic NOSE: Normal nasal mucous membranes and turbinates present TEETH & GINGIVA: Yes poor dentition Eye: COMMON NORMALS: Equal, round and reactive pupils present, EOMs intact bilaterally and conjunctivae normal CONJUNCTIVA: Yes conjunctivae normal P UPIL: Yes Equal, round and reactive pupils present Neck/C-Spine: COMMON NORMALS: full ROM, no lymphadenopathy, supple and no JVD Chest: COMMONS NORMALS: normal inspection of the chest Resp: COMMON NORMALS: No use of accessory muscles and clear to auscultation bilaterally EFFORT & INSPECTION: Yes able to speak in complete sentences A USCULTATION: clear to auscultation bilaterally and rhonchi Cardio: COMMON NORMALS: no JVD, regular rate, regular rhythm, No murmurs present (Cardio) and Peripheral pulses 2+ throughout RATE: regular rate R HYTHM: regular rhythm PERIPHERAL PULSES: Peripheral pulses 2+ throughout GI: COMMON NORMALS: Normal to inspection, nondistended, normoactive bowel sounds present, Soft to palpation and non-tender INSPECTION: Yes central obesity PALPATION: Yes Soft to palpation : COMMON NORMALS: Yes no CVA tenderness BLADDER/KIDNEY EXAM: Yes no CVA tenderness Back/Pelvis: COMMON NORMALS: no CVA tenderness, thoracic and lumbar spine normal to inspection, no thoracic nor lumbar tenderness and thoraco-lumbar ROM normal Extremity: COMMON NORMALS: full ROM, no clubbing, cyanosis or edema, no calf tenderness and no pedal edema NARRATIVE EXTREMITY EXAM: Some increased hyperpigmentation of the skin of the anterior portions of both lower extremities. He has a small abrasion on the anterior right ankle with no drainage and appropriate eschar over the abrasion. No lymphadenopathy or lymphadenitis noted. Neuro: COMMON NORMALS: patient oriented x3, moves all extremities and no focal motor deficits SENSORIUM/ORIENTATION: Yes alert Psych: COMMON NORMALS: mental status grossly normal Skin: COMMON NORMALS: turgor normal, no jaundice and no petechiae GENERAL SKIN EXAM: turgor normal Course 2 Reevaluation(s): Reevaluation #1: Patient remained stable drinking fluids and otherwise has normal vital signs. I shared his current findings there implications and limitations. At this point no evidence to suggest a serious infection or an ongoing emergency medical condition and after discussion we feel it is appropriate for him to be continue to observe at home which she is very amenable to. Stable at this time. Time: 10:30 Vital Signs: Vital signs: Vital Signs Temperature 98.5 F 10/04/23 08:16 Pulse Rate 102 H 10/04/23 10:23 Respiratory Rate 17 10/04/23 10:23 Blood Pressure 159/72 10/04/23 08:16 Pulse Oximetry 92 10/04/23 10:23 Oxygen Delivery Me thod Room Air 10/04/23 10:23 [facility] - General Adult Medical Decision Making This patient presented to our emergency department with some vague malaise symptoms that he noted today and therefore prompted him to come to the emergency department. He had a ongoing therapy for dental caries and plan to ask extractions on Friday with amoxicillin. He had some recurrent symptoms of his chronic prostatitis and was seen in the clinic yesterday afternoon and prescribed antibiotics of which she is only taken 1. He had no documented fevers chest pain or other associated symptoms. His clinical exam was reassuring without any evidence of any significant clinical findings. He does have chronic hyperpigmentation from venous insufficiency of his lower extremities as well as his poor dentition. Screening laboratories to ensure no evidence of serious infection were obtained. His viral studies to include influenza, COVID were negative his chest x-ray was interpreted as possible small pleural effusions however comparison with prior chest x-rays and my review of the plain films feel that this is more positioning and does not represent pleural effusions at this time. This not consistent with his clinical exam as well. His urinalysis was reassuring as well as the remainder of his laboratories. At this point there is no evidence that suggest acute pneumonia, acute upper urinary tract infection, or other acute viral infection to be causing his symptoms. These were shared with the patient and he was comfortable with continue his current regimen and observing at home with return precautions. Lab Data I reviewed the patient's lab results. 10/04/23 08:51 10/04/23 08:51 Radiology Impressions Chest X-Ray 10/04/23 08:32 IMPRESSION: Interstitial pulmonary edema with small bilateral pleural effusions. Laboratory Results WBC 10.71 10^3/uL (3.29-11.43) 10/04/23 08:51 RBC 4.87 10^6/uL (3.85-5.65) 10/04/23 08:51 Hgb 14.40 g/dL (11.27-16.99) 10/04/23 08:51 Hct 45.4 % (37-53) 10/04/23 08:51 MCV 93.2 fl (82-101) 10/04/23 08:51 MCH 29.6 pg (27-33) 10/04/23 08:51 MCHC 31.7 g/dL (30-55) 10/04/23 08:51 RDW 14.9 % (12.1-15.1) 10/04/23 08:51 Plt Count 178 10^3/cmm (157-399) 10/04/23 08:51 MPV 9.1 fL (7.4-10.4) 10/04/23 08:51 Neut % (Auto) 83.8 % 10/04/23 08:51 Lymph % (Auto) 11.4 % 10/04/23 08:51 [place] % (Auto) 2.7 % 10/04/23 08:51 Eos % (Auto) 1.3 % 10/04/23 08:51 Baso % (Auto) 0.2 % 10/04/23 08:51 Neut # (Auto) 8.98 10^3/uL (1.8-7.7) H 10/04/23 08:51 Lymph # (Auto) 1.2 10^3/uL (0.8-4.8) 10/04/23 08:51 [place] # (Auto) 0.3 10^3/uL (0.2-0.9) 10/04/23 08:51 Eos # (Auto) 0.1 10^3/uL (0.0-0.8) 10/04/23 08:51 Baso # (Auto) 0.0 10^3/uL (0.0-0.1) 10/04/23 08:51 Nucleated RBC % (auto) 0 % 10/04/23 08:51 Nucleated RBCs # 0.0 /100WBC 10/04/23 08:51 Sodium 134 mmol/L (136-145) L 10/04/23 08:51 Potassium 4.5 mmol/L (3.5-5.1) 10/04/23 08:51 Chloride 99 mmol/L (98-107) 10/04/23 08:51 Carbon Dioxide 23 mmol/L (22-29) 10/04/23 08:51 Anion Gap 16.5 (5-19) 10/04/23 08:51 BUN 12 mg/dL (8-23) 10/04/23 08:51 Creatinine 0.9 mg/dL (0.7-1.2) 10/04/23 08:51 GFR Calculation Not Reportable 10/04/23 08:51 Glucose 168 mg/dL (65-115) H 10/04/23 08:51 Calculated Osmolality 282 mOsm/kg (285-295) L 10/04/23 08:51 Calcium 8.6 mg/dL (8.5-10.5) 10/04/23 08:51 Total Bilirubin 0.3 mg/dL (0.15-1.2) 10/04/23 08:51 AST 17 U/L (0-40) 10/04/23 08:51 ALT 21 U/L (0-41) 10/04/23 08:51 Alkaline Phosphatase 61 U/L (40-130) 10/04/23 08:51 Total Protein 6.7 g/dL (6.6-8.7) 10/04/23 08:51 Albumin 3.6 g/dL (3.5-5.2) 10/04/23 08:51 Globulin 3.1 g/dL (1.3-4.6) 10/04/23 08:51 Urine Color Yellow (Yellow) 10/04/23 08:58 Urine Appearance Clear (CLEAR) 10/04/23 08:58 Urine pH 7 (5-7) 10/04/23 08:58 Ur Specific [place] 1.005 (1.005-1.030) 10/04/23 08:58 Urine Protein Neg (Negative) 10/04/23 08:58 Urine Glucose (UA) Trace (Normal) H 10/04/23 08:58 Urine Ketones Negative (Negative) 10/04/23 08:58 Urine Blood Neg (Negative) 10/04/23 08:58 Urine Nitrate Negative (Negative) 10/04/23 08:58 Urine Bilirubin Neg (Negative) 10/04/23 08:58 Urine Urobilinogen Norm mg/dL (Negative) 10/04/23 08:58 Ur Leukocyte Esterase Negative (Negative) 10/04/23 08:58 Influenza Type A Ag negative (Negative) 10/04/23 08:58 Influenza Type B Ag negative (Negative) 10/04/23 08:58 SARS-CoV-2 Ag (Rapid) negative (Negative) 10/04/23 08:58 All radiology interpretation(s) finalized by discharge Discharge Plan Discharge Patient Disposition: Home Clinical Impression: History of chronic prostatitis Condition: Stable Prescriptions: No Action citalopram 40 mg tablet 40 mg PO QAM ascorbic acid (vitamin C) 1,000 mg tablet 1,000 mg PO DAILY multivitamin Tablet 1 tab PO DAILY losartan 50 mg tablet 50 mg PO QPM metoprolol succinate 50 mg tablet extended release 24 hr 50 mg PO QPM acetaminophen [Tylenol Ex Str Rapid Release] 500 mg Tablet 500 - 1,000 mg PO Q6H PRN (Reason: Pain) calcium carbonate-vitamin D3 [Calcium 600 + D(3)] 600 mg-10 mcg (400 unit) Tablet 2 tab PO DAILY Eliquis 5 mg tablet 5 mg PO BID finasteride 5 mg tablet 5 mg PO QPM alfuzosin 10 mg tablet extended release 24 hr 10 mg PO QPM amoxicillin 500 mg capsule 500 mg PO TID tramadol 50 mg tablet 50 mg PO Q6H PRN (Reason: Pain) [place] Nasal 0.65 % Aerosol,[place] 1 spray INTRANASAL BID PRN (Reason: ALLERGIES) nitrofurantoin monohyd/m-cryst 100 mg capsule 100 mg PO Q12H Discharge Orders: Discharge ED (Routine); Ordered 10/04/23 Ordered By: Ruel Escoto Referrals: Iker Maya MD [Primary Care Provider] - Discharge Diet: Usual diet Discharge Activity: Increase activity as tolerated Patient Instructions: Opioid Safety, Pain Management Activity Restrictions/Additional Instructions: As we discussed we did not have any evidence today that any serious infection or other condition was ongoing however your medical condition may change and if it does so with increasing symptoms, fevers or other concerns you are welcome to return to the emergency department for reevaluation. You should continue the medications prescribed previously to include the antibiotics. Follow-up with your dentist Friday as scheduled and again your welcome to return to the emergency department for any ongoing and increasing symptoms Coding Level of Care Code ED Reviewer Sales for Anil Schaeffer
[2023-10-04 09:01] LABS: Basophils % 0.2 %; Eosinophils # 0.1 10^3/uL (0.0-0.8); Eosinophils % 1.3 %; Hematocrit 45.4 % (37-53); Lymphocytes # 1.2 10^3/uL (0.8-4.8); Lymphocytes % 11.4 %; Mean Corpuscular HGB Conc 31.7 g/dL (30-55); Mean Corpuscular Hemoglobin 29.6 pg (27-33); Mean Corpuscular Volume 93.2 fl (82-101); Mean Platelet Volume 9.1 fL (7.4-10.4); Monocytes # 0.3 10^3/uL (0.2-0.9); Monocytes % 2.7 %; Neutrophils # 8.98 10^3/uL (1.8-7.7); Neutrophils % 83.8 %; Nucleated Red Blood Cells % 0 %; Platelet Count 178 10^3/cmm (157-399); Red Blood Count 4.87 10^6/uL (3.85-5.65); Red Cell Distribution Width 14.9 % (12.1-15.1); White Blood Count 10.71 10^3/uL (3.29-11.43)
[2023-10-04 09:07] LABS: Add Urine Microscopic? NO; Charge for UA Resulting for Rev
[2023-10-04 09:17] LABS: Bilirubin Urine Neg (Negative); Blood Urine Neg (Negative); Glucose Urine UA Trace (Normal); Ketones Urine Negative (Negative); Leukocyte Esterase Urine Negative (Negative); Nitrate Urine Negative (Negative); Protein Urine Neg (Negative); Specific Gravity, Urine 1.005 (1.005-1.030); Urine Appearance Clear (CLEAR); Urine Color Yellow (Yellow); Urobilinogen Urine Norm (Negative); pH Urine 7 (5-7)
[2023-10-04 09:24] LABS: Influenza A by IFA negative (Negative); Influenza B by IFA negative (Negative); SARS Covid-2 Antigen negative (Negative)
[2023-10-04 09:29] LABS: Alanine Aminotransferase 21 U/L (0-41); Albumin Level 3.6 g/dL (3.5-5.2); Alkaline Phosphatase 61 U/L (40-130); Anion Gap 16.5 (5-19); Aspartate Amino Transferase 17 U/L (0-40); Blood Urea Nitrogen 12 mg/dL (8-23); Calcium 8.6 mg/dL (8.5-10.5); Carbon Dioxide 23 mmol/L (22-29); Chloride 99 mmol/L (98-107); Creatinine Clr Calc Pharmacy 89.3459; Globulin 3.1 g/dL (1.3-4.6); Glucose 168 mg/dL (65-115); Osmolality Calculated 282 mOsm/kg (285-295); Potassium 4.5 mmol/L (3.5-5.1); Sodium 134 mmol/L (136-145); Total Bilirubin 0.3 mg/dL (0.15-1.2); Total Protein 6.7 g/dL (6.6-8.7)
[2023-10-04 10:23] VITALS: PULSE 102; RESP 17; O2SAT 92
== END 2023-10-04 10:40 | disposition home or self-care (01) ==
PROVIDERS: Emergency Provider Emergency Medicine; PCP Family Medicine
DX: N40.0 Benign prostatic hyperplasia without lower urinary tract symptoms (principal); Z79.01 Long term (current) use of anticoagulants; Z11.52 Encounter for screening for COVID-19; I10 Essential (primary) hypertension; Z87.891 Personal history of nicotine dependence
CPT/HCPCS: 36415; 71045; 80053; 81003; 85025; 87426; 87804; 99284

== ENCOUNTER → 2023-12-03 14:20 | Outpatient (BNVA) | payer MEDICARE, SELFPAY | PROVIDERS: PCP Family Medicine; Referring Provider Family Medicine; Visit Provider Internal Medicine | DX: R07.9 Chest pain, unspecified (principal) | CPT/HCPCS: 93005 ==

== ENCOUNTER 2024-06-27 08:23 | Emergency (ER) | payer SELFPAY ==
[2024-06-27 09:05] VITALS: BP 154/81; PULSE 54; RESP 18; TEMP 36.8; O2SAT 97
--- NOTE | 2024-06-27 10:19 | W.ED.EXTPRO ---
HPI - Extremity Problem General: Chief complaint: Extremity Problem,Nontraumatic Stated complaint: rt wrist inj Time Seen by Provider: 06/27/24 09:08 History of Present Illness: This patient is an 83 year old presenting with hand pain and numbness. He has been diagnosed with carpal tunnel - and has been using a brace. He continues to use the hand - chopping wood and also playing video games. He says that he plays a lot of video games on his computer and so does a lot of typing. He has classic symptoms of carpal tunnel. He reports that his doctor gave him steroids and it helped. He thinks he needs more. Related Data Home Medications Medication Instructions Recorded Confirmed ascorbic acid (vitamin C) 1,000 mg 1,000 mg PO DAILY 04/05/20 12/03/23 tablet citalopram 40 mg tablet 40 mg PO QAM 04/05/20 12/03/23 acetaminophen 500 mg tablet 500 - 1,000 mg PO Q6H PRN Pain 11/17/22 12/03/23 alfuzosin 10 mg tablet,extended 10 mg PO QPM 11/17/22 12/03/23 release 24 hr apixaban 5 mg tablet (Eliquis) 5 mg PO BID 11/17/22 12/03/23 calcium 600 mg (as 2 tab PO DAILY 11/17/22 12/03/23 carbonate)-vitamin D3 10 mcg (400 unit) tablet (Calcium 600 + D(3)) finasteride 5 mg tablet 5 mg PO QPM 11/17/22 12/03/23 losartan 50 mg tablet 50 mg PO QPM 11/17/22 12/03/23 metoprolol succinate 50 mg 50 mg PO QPM 11/17/22 12/03/23 tablet,extended release 24 hr multivitamin 1 tab PO DAILY 11/17/22 12/03/23 nitrofurantoin 100 mg PO Q12H 10/04/23 12/03/23 monohydrate/macrocrystals 100 mg capsule sodium chloride 0.65 % nasal spray 1 spray intranasal BID PRN 10/04/23 12/03/23 aerosol ALLERGIES tramadol 50 mg tablet 50 mg PO Q6H PRN Pain 10/04/23 12/03/23 Previous Rx's Medication Instructions Recorded prednisone 5 mg tablet 5 mg PO BID #10 tabs 06/27/24 Allergies Allergy/AdvReac Type Severity Reaction Status Date / Time No Known Allergies Allergy Verified 12/03/23 14:42 PFSH ED PFSH: Medical History BPH loc w urin obs/LUTS HTN (hypertension) Elevated PSA Incomplete bladder emptying Chronic prostatitis Family History Father , AT AGE 67 LUNG CANCER Cancer Mother , AT AGE 93 CAD (coronary artery disease) Social History Smoking and tobacco/nicotine status: former use of tobacco/nicotine Alcohol intake: current Alcohol intake frequency: few times a week Substance/Drug Use: unknown Adopted: No Caregiver/support person: No Lives independently: No Household members: spouse Marital status: Current occupational status: retired Physical Exam Const: COMMON NORMALS: no acute distress, patient oriented x3, no limitations and alert GENERAL APPEARANCE: cooperative and comfortable HENMT: HEAD & SCALP: normal to inspection FACE & SINUS: normal facial exam Eye: GENERAL EYE: appearance normal, both eyes and all related structures Neck/C-Spine: COMMON NORMALS: supple Resp: COMMON NORMALS: normal respiratory effort, No use of accessory muscles and clear to auscultation bilaterally AUSCULTATION: clear to auscultation bilaterally GI: COMMON NORMALS: Normal to inspection, nondistended, normoactive bowel sounds present, Soft to palpation and non-tender INSPECTION: Yes normal to inspection AUSCULTATION: Yes normoactive bowel sounds PALPATION: Yes Soft to palpation Extremity: COMMON NORMALS: normal to inspection NARRATIVE EXTREMITY EXAM: Numbness in his median nerve distributions. No bony tenderness and no deformity Neuro: COMMON NORMALS: patient oriented x3, moves all extremities and no focal motor deficits SENSORIUM/ORIENTATION: Yes alert Psych: COMMON NORMALS: mental status grossly normal, cooperative and normal affect Skin: COMMON NORMALS: no rashes or lesions noted and turgor normal GENERAL SKIN EXAM: no rashes or lesions noted and turgor normal Course Vital Signs: Vital signs: Vital Signs Temperature 98.2 F 06/27/24 09:05 Pulse Rate 54 L 06/27/24 09:05 Respiratory Rate 18 06/27/24 09:05 Blood Pressure 154/81 06/27/24 09:05 Pulse Oximetry 97 06/27/24 09:05 Oxygen Delivery Me thod Room Air 06/27/24 09:05 MDM - Extremity (Nontraumatic) Medical Decision Making Carpal tunnel - We discussed the need to rest his hand as his symptoms will not improve until the inflammation is allowed to decrease. I did refill his prednisone for a few days. He has follow up and a brace. No radiology studies performed this visit ED provider radiology interpretation(s): I did review xrays from a prior visit Discharge Plan Discharge Patient Disposition: Home Clinical Impression: Acute carpal tunnel syndrome of right wrist, Tenosynovitis Condition: Stable Prescriptions: New prednisone 5 mg tablet 5 mg PO BID Qty: 10 0RF No Action citalopram 40 mg tablet 40 mg PO QAM ascorbic acid (vitamin C) 1,000 mg tablet 1,000 mg PO DAILY multivitamin Tablet 1 tab PO DAILY losartan 50 mg tablet 50 mg PO QPM metoprolol succinate 50 mg tablet extended release 24 hr 50 mg PO QPM acetaminophen [Tylenol Ex Str Rapid Release] 500 mg Tablet 500 - 1,000 mg PO Q6H PRN (Reason: Pain) calcium carbonate-vitamin D3 [Calcium 600 + D(3)] 600 mg-10 mcg (400 unit) Tablet 2 tab PO DAILY Eliquis 5 mg tablet 5 mg PO BID finasteride 5 mg tablet 5 mg PO QPM alfuzosin 10 mg tablet extended release 24 hr 10 mg PO QPM tramadol 50 mg tablet 50 mg PO Q6H PRN (Reason: Pain) [place] Nasal 0.65 % Aerosol,[place] 1 spray INTRANASAL BID PRN (Reason: ALLERGIES) nitrofurantoin monohyd/m-cryst 100 mg capsule 100 mg PO Q12H Discharge Orders: Discharge ED (Routine); Ordered 06/27/24 Ordered By: [place] Cisneros Referrals: Iker Maya MD [Primary Care Provider] - Patient Instructions: Opioid Safety, Pain Management Activity Restrictions/Additional Instructions: Continue to use the brace. Elevate arm at night. Rest hand - no typing or keyboard use. Follow up with Dr. Maya and orthopedics as needed. Coding Level of Care Code ED Lining Machine Tender for Anil Schaeffer
== END 2024-06-27 10:32 | disposition home or self-care (01) ==
PROVIDERS: Emergency Provider Emergency Medicine; PCP Family Medicine
DX: G56.01 Carpal tunnel syndrome, right upper limb (principal); M65.90 Unspecified synovitis and tenosynovitis, unspecified site; Z87.891 Personal history of nicotine dependence; Z79.01 Long term (current) use of anticoagulants; I10 Essential (primary) hypertension
CPT/HCPCS: 99283

== ENCOUNTER → 2024-09-07 10:44 | Outpatient (BNVA) | payer MEDICARE, SELFPAY | PROVIDERS: PCP Family Medicine; Visit Provider Student in an Organized Health Care Education/Training Program | DX: M25.531 Pain in right wrist (principal); R20.0 Anesthesia of skin; R20.2 Paresthesia of skin | CPT/HCPCS: 73110; 99204 ==

== ENCOUNTER → 2024-10-20 13:34 | Outpatient (BNVA) | payer MEDICARE, SELFPAY | PROVIDERS: PCP Family Medicine; Visit Provider Podiatrist Foot & Ankle Surgery | DX: M79.672 Pain in left foot (principal); L84 Corns and callosities | CPT/HCPCS: 99203 ==

== ENCOUNTER → 2024-10-26 07:51 | Outpatient (BNVA) | payer MEDICARE, SELFPAY | PROVIDERS: PCP Family Medicine; Referring Provider Student in an Organized Health Care Education/Training Program; Visit Provider Psychiatry & Neurology Neurology | DX: R20.0 Anesthesia of skin (principal); R20.2 Paresthesia of skin; G56.03 Carpal tunnel syndrome, bilateral upper limbs | CPT/HCPCS: 95913 ==

== ENCOUNTER 2024-12-13 03:03 | Emergency (ER) | payer MEDICARE, SELFPAY ==
[2024-12-13 03:06] VITALS: BP 164/86; PULSE 54; RESP 16; TEMP 36.1; O2SAT 100; BMI 31.8
--- NOTE | 2024-12-13 03:27 | CTR_ITS ---
PROCEDURE INFORMATION: Exam: CT Head Without Contrast Exam date and time: 12/13/2024 3:36 AM Age: 84 years old Clinical indication: Headache; Prior surgery; Surgery date: 3-7 days post-operative; Surgery type: Surgery for detached retina 12/09/2024; Patient C/O sudden dizziness and FRENCH with RT ocular pain when getting up to use bathroom about an hour prior to arrival. Surgery for detached retina performedon RT eye 12/09/2024. ; Additional info: FRENCH, dizziness TECHNIQUE: Imaging protocol: Computed tomography of the head without contrast. Radiation optimization: All CT scans at this facility use at least one of these dose optimization techniques: automated exposure control; mA and/or kV adjustment per patient size (includes targeted exams where dose is matched to clinical indication); or iterative reconstruction. COMPARISON: CT head wo con* [id number] 11/17/2022 9:29 AM RADIATION DOSE METRICS: Total DLP (mGy-cm): 1056.78 FINDINGS: Brain: Heavy intracranial calcified atherosclerotic disease. Cerebral ventricles: No ventriculomegaly. Paranasal sinuses: Visualized sinuses are unremarkable. No fluid levels. Mastoid air cells: Visualized mastoid air cells are well aerated. Orbital cavities: Right globe demonstrates air and layering debris periventricular white matter hypoattenuation, nonspecific, likely branch customer service representative of chronic microvascular disease. Bones: Unremarkable. No acute fracture. Soft tissues: Unremarkable. CT/CT head wo con* [id number] IMPRESSION: 1. No acute intracranial findings. 2. Right globe findings likely related to postoperative changes. If there is clinical concern for acute orbital pathology recommend ophthalmic consultation.
--- NOTE | 2024-12-13 03:27 | XRR_ITS ---
PROCEDURE INFORMATION: Exam: XR Chest Exam date and time: 12/13/2024 3:26 AM Age: 84 years old Clinical indication: Other: Hypertension with dizziness; Hypertensive with dizziness. ; Additional info: HTN, dizziness TECHNIQUE: Imaging protocol: Radiologic exam of the chest. Views: 1 view. COMPARISON: CR XR chest 1V portable [id number] 10/04/2023 8:40 AM FINDINGS: Lungs: Diffuse increase in interstitial lung markings without focal consolidation. COPD changes. Pleural spaces: Unremarkable. No pleural effusion. No pneumothorax. Heart/Mediastinum: Unremarkable. No cardiomegaly. Vasculature: Atherosclerotic disease of the aortic arch. Bones/joints: Degenerative changes of the visualized osseous structures. XR/XR chest 1V [id number] IMPRESSION: Interstitial prominence without focal consolidation, nonspecific finding and could be related to evolving edema, pneumonitis. Correlate clinically.
[2024-12-13 03:31] VITALS: BP 130/79; PULSE 54; RESP 16; O2SAT 97
[2024-12-13 04:46] VITALS: BP 161/86; PULSE 58; RESP 16; O2SAT 97
[2024-12-13 05:00] VITALS: BP 168/81; PULSE 54; RESP 16; O2SAT 97
--- NOTE | 2024-12-13 05:01 | W.ED.DIZZY ---
HPI - Dizziness General: Chief Complaint: Dizziness Stated Complaint: dizzness, headache Time Seen by Provider: 12/13/24 05:01 History of Present Illness: HPI Narrative: 84-year-old gentleman has had 2 surgeries on his right eye for retinal detachment. He complained of dizziness, with headache, when getting up to urinate around 2 AM. This has not improved. Pain is above and behind his right eye. This is the eye he has surgery on twice. No chest pain, no shortness of breath. He does have a history of DVT, hypertension. He is on 4 different eyedrops after his surgery. He does not know if the dizziness is related to his surgery or his headache. He states that he has had his headache on and off since surgery. It is not overly different. Related Data Home Medications ?Medication ?Instructions ?Recorded ?Confirmed ascorbic acid (vitamin C) 1,000 mg 1,000 mg PO DAILY 04/05/20 10/26/24 tablet citalopram 40 mg tablet 40 mg PO QAM 04/05/20 10/26/24 acetaminophen 500 mg tablet 500 - 1,000 mg PO Q6H PRN Pain 11/17/22 10/26/24 alfuzosin 10 mg tablet,extended 10 mg PO QPM 11/17/22 10/26/24 release 24 hr apixaban 5 mg tablet (Eliquis) 5 mg PO BID 11/17/22 10/26/24 calcium 600 mg (as 2 tab PO DAILY 11/17/22 10/26/24 carbonate)-vitamin D3 10 mcg (400 unit) tablet (Calcium 600 + D(3)) finasteride 5 mg tablet 5 mg PO QPM 11/17/22 10/26/24 losartan 50 mg tablet 50 mg PO QPM 11/17/22 10/26/24 metoprolol succinate 50 mg 50 mg PO QPM 11/17/22 10/26/24 tablet,extended release 24 hr multivitamin 1 tab PO DAILY 11/17/22 10/26/24 nitrofurantoin 100 mg PO Q12H 10/04/23 10/26/24 monohydrate/macrocrystals 100 mg capsule sodium chloride 0.65 % nasal spray 1 spray intranasal BID PRN 10/04/23 10/26/24 aerosol ALLERGIES tramadol 50 mg tablet 50 mg PO Q6H PRN Pain 10/04/23 10/26/24 Previous Rx's ?Medication ?Instructions ?Recorded prednisone 5 mg tablet 5 mg PO BID #10 tabs 06/27/24 Allergies Allergy/AdvReac Type Severity Reaction Status Date / Time No Known Allergies Allergy Verified 10/26/24 11:20 PFS ED PFSH: Medical History BPH loc w urin obs/LUTS HTN (hypertension) Elevated PSA Incomplete bladder emptying Chronic prostatitis Family History Father , AT AGE 67 LUNG CANCER Cancer Mother , AT AGE 93 CAD (coronary artery disease) Social History Smoking and tobacco/nicotine status: unknown if used tobacco/nicotine Alcohol intake: current Alcohol intake frequency: few times a week Substance/Drug Use: unknown Adopted: No Caregiver/support person: No Lives independently: No Household members: spouse Marital status: Current occupational status: retired Physical Exam Const: COMMON NORMALS: no acute distress GENERAL APPEARANCE: cooperative; not ill appearing and not frail appearing HENMT: COMMON NORMALS: normocephalic, atraumatic and Normal external nose present HEAD & SCALP: normocephalic and atraumatic FACE & SINUS: normal facial exam and face symmetric NOSE: Normal external nose present Eye: COMMON NORMALS: Equal, round and reactive pupils present and EOMs intact bilaterally PUPIL: Yes Equal, round and reactive pupils present Neck/C-Spine: GENERAL: Yes trachea midline Chest: CHEST: Yes Symmetrical chest wall rise Resp: COMMON NORMALS: normal respiratory effort, No retractions, No use of accessory muscles and clear to auscultation bilaterally AUSCULTATION: clear to auscultation bilaterally Cardio: COMMON NORMALS: regular rate and regular rhythm RATE: regular rate RHYTHM: regular rhythm GI: COMMON NORMALS: Normal to inspection, nondistended, normoactive bowel sounds present Extremity: COMMON NORMALS: no pedal edema Neuro: GILMER COMA SCALE: document GCS findings Gilmer coma scale eye opening: Spontaneous Gilmer coma scale verbal response: Orientated Gilmer coma scale motor response: Obey commands Gilmer coma scale total score: 15 SENSORY EXAM: Yes extremities (intact) Psych: COMMON NORMALS: speech normal SPEECH: Yes normal speech Skin: COMMON NORMALS: no rashes or lesions noted GENERAL SKIN EXAM: no rashes or lesions noted Course Vital Signs: Vital signs: Vital Signs Temperature 97.0 F L 12/13/24 03:06 Pulse Rate 52 L 12/13/24 06:18 Respiratory Rate 16 12/13/24 06:18 Blood Pressure 139/84 12/13/24 06:18 Pulse Oximetry 95 12/13/24 06:18 Oxygen Delivery Me thod Room Air 12/13/24 03:06 MDM - Dizziness Medical Decision Making Head CT is negative for acute findings. There are some changes in the right globe related to his postoperative state. His CBC is normal. His intraocular pressure is 8. His EKG shows a sinus bradycardia with a rate of 50. First-degree AV block is present. Rate is low enough to create some lightheadedness. He is on metoprolol. Will have him decrease from 50 to 25at night to see if this improves his symptoms. I doubt there is enough systemic absorption of the timolol to reduce his heart rate. He is otherwise stable for discharge. Lab Data 12/13/24 05:11 12/13/24 05:11 Radiology Impressions Chest X-Ray 12/13/24 03:27 IMPRESSION: Interstitial prominence without focal consolidation, nonspecific finding and could be related to evolving edema, pneumonitis. Correlate clinically. Head CT 12/13/24 03:27 IMPRESSION: 1. No acute intracranial findings. 2. Right globe findings likely related to postoperative changes. If there is clinical concern for acute orbital pathology recommend ophthalmic consultation. Laboratory Results WBC 8.73 10^3/uL (3.29-11.43) 12/13/24 05:11 RBC 5.04 10^6/uL (3.85-5.65) 12/13/24 05:11 Hgb 15.20 g/dL (11.27-16.99) 12/13/24 05:11 Hct 45.6 % (37-53) 12/13/24 05:11 MCV 90.5 fl (82-101) 12/13/24 05:11 MCH 30.2 pg (27-33) 12/13/24 05:11 MCHC 33.3 g/dL (30-55) 12/13/24 05:11 RDW 13.3 % (12.1-15.1) 12/13/24 05:11 Plt Count 215 10^3/cmm (157-399) 12/13/24 05:11 MPV 9.8 fL (7.4-10.4) 12/13/24 05:11 Neut % (Auto) 51.8 % 12/13/24 05:11 Lymph % (Auto) 34.5 % 12/13/24 05:11 [place] % (Auto) 8.6 % 12/13/24 05:11 Eos % (Auto) 3.9 % 12/13/24 05:11 Baso % (Auto) 0.7 % 12/13/24 05:11 Neut # (Auto) 4.53 10^3/uL (1.8-7.7) 12/13/24 05:11 Lymph # (Auto) 3.0 10^3/uL (0.8-4.8) 12/13/24 05:11 Garden # (Auto) 0.8 10^3/uL (0.2-0.9) 12/13/24 05:11 Eos # (Auto) 0.3 10^3/uL (0.0-0.8) 12/13/24 05:11 Baso # (Auto) 0.1 10^3/uL (0.0-0.1) 12/13/24 05:11 Nucleated RBC % (auto) 0 % 12/13/24 05:11 Nucleated RBCs # 0.0 /100WBC 12/13/24 05:11 Sodium 137 mmol/L (136-145) 12/13/24 05:11 Potassium 4.3 mmol/L (3.5-5.1) 12/13/24 05:11 Chloride 102 mmol/L (98-107) 12/13/24 05:11 Carbon Dioxide 22 mmol/L (22-29) 12/13/24 05:11 Anion Gap 17.3 (5-19) 12/13/24 05:11 BUN 16 mg/dL (8-23) 12/13/24 05:11 Creatinine 0.8 mg/dL (0.7-1.2) 12/13/24 05:11 GFR Calculation Not Reportable 12/13/24 05:11 Glucose 120 mg/dL (65-115) H 12/13/24 05:11 Calculated Osmolality 286 mOsm/kg (285-295) 12/13/24 05:11 Calcium 9.5 mg/dL (8.5-10.5) 12/13/24 05:11 Magnesium 2.1 mg/dL (1.7-2.3) 12/13/24 05:11 Total Bilirubin 0.3 mg/dL (0.15-1.2) 12/13/24 05:11 AST 15 U/L (0-40) 12/13/24 05:11 ALT 14 U/L (0-41) 12/13/24 05:11 Alkaline Phosphatase 75 U/L (40-130) 12/13/24 05:11 NT-Pro-B Natriuret Pep 69 pg/mL (0-450) 12/13/24 05:11 Total Protein 7.0 g/dL (6.6-8.7) 12/13/24 05:11 Albumin 4.2 g/dL (3.5-5.2) 12/13/24 05:11 Globulin 2.8 g/dL (1.3-4.6) 12/13/24 05:11 Urine Color Yellow (Yellow) 12/13/24 05:11 Urine Appearance Clear (CLEAR) 12/13/24 05:11 Urine pH 6.5 (5-7) 12/13/24 05:11 Ur Specific [place] 1.009 (1.005-1.030) 12/13/24 05:11 Urine Protein Negative (Negative) 12/13/24 05:11 Urine Glucose (UA) Negative (Normal) 12/13/24 05:11 Urine Ketones Negative (Negative) 12/13/24 05:11 Urine Blood Negative (Negative) 12/13/24 05:11 Urine Nitrate Negative (Negative) 12/13/24 05:11 Urine Bilirubin Negative (Negative) 12/13/24 05:11 Urine Urobilinogen 0.2 mg/dL (Negative) 12/13/24 05:11 Ur Leukocyte Esterase Negative (Negative) 12/13/24 05:11 Urine RBC 0-2 /hpf (0-2) 12/13/24 05:11 Urine WBC 0-5 /hpf (0-5) 12/13/24 05:11 Ur Squamous Epith Cells 0-5 /hpf (0-5) 12/13/24 05:11 Amorphous Sediment Not Reportable 12/13/24 05:11 Urine Bacteria None seen /hpf (NONE) 12/13/24 05:11 Hyaline Casts 0-4 /lpf H 12/13/24 05:11 XR interpretation done by ED provider, pending radiology final review Discharge Plan Discharge Patient Disposition: Home Clinical Impression: Bradycardia Condition: Stable Prescriptions: No Action citalopram 40 mg tablet 40 mg PO QAM ascorbic acid (vitamin C) 1,000 mg tablet 1,000 mg PO DAILY multivitamin Tablet 1 tab PO DAILY losartan 50 mg tablet 50 mg PO QPM metoprolol succinate 50 mg tablet extended release 24 hr 50 mg PO QPM acetaminophen [Tylenol Ex Str Rapid Release] 500 mg Tablet 500 - 1,000 mg PO Q6H PRN (Reason: Pain) calcium carbonate-vitamin D3 [Calcium 600 + D(3)] 600 mg-10 mcg (400 unit) Tablet 2 tab PO DAILY Eliquis 5 mg tablet 5 mg PO BID finasteride 5 mg tablet 5 mg PO QPM alfuzosin 10 mg tablet extended release 24 hr 10 mg PO QPM tramadol 50 mg tablet 50 mg PO Q6H PRN (Reason: Pain) [place] Nasal 0.65 % Aerosol,[place] 1 spray INTRANASAL BID PRN (Reason: ALLERGIES) nitrofurantoin monohyd/m-cryst 100 mg capsule 100 mg PO Q12H prednisone 5 mg tablet 5 mg PO BID Qty: 10 0RF Discharge Orders: Discharge ED (Routine); Ordered 12/13/24 Ordered By: Rodolfo Moore Referrals: Iker Maya MD [Primary Care Provider, Family Practice] - 1-3 days Patient Instructions: Bradycardia (ED), Dizziness (ED), Opioid Safety, Pain Management Activity Restrictions/Additional Instructions: Cut your 50 mg metoprolol dose in half starting tonight. Your heart rate was a bit too low, which could be creating your symptoms of dizziness and lightheadedness. Monitor your heart rate closely. If heart rate is staying below 50, and you are symptomatic, return to the emergency department. Follow-up with your doctor, call later this morning for an appointment. Print Language: Luxembourger Coding Level of Care Code ED Artificial Intelligence Specialist for Anil Schaeffer
[2024-12-13 05:15] LABS: Basophils # 0.1 10^3/uL (0.0-0.1); Basophils % 0.7 %; Eosinophils # 0.3 10^3/uL (0.0-0.8); Eosinophils % 3.9 %; Hematocrit 45.6 % (37-53); Lymphocytes % 34.5 %; Mean Corpuscular HGB Conc 33.3 g/dL (30-55); Mean Corpuscular Hemoglobin 30.2 pg (27-33); Mean Corpuscular Volume 90.5 fl (82-101); Mean Platelet Volume 9.8 fL (7.4-10.4); Monocytes # 0.8 10^3/uL (0.2-0.9); Monocytes % 8.6 %; Neutrophils # 4.53 10^3/uL (1.8-7.7); Neutrophils % 51.8 %; Nucleated Red Blood Cells % 0 %; Platelet Count 215 10^3/cmm (157-399); Red Blood Count 5.04 10^6/uL (3.85-5.65); Red Cell Distribution Width 13.3 % (12.1-15.1); White Blood Count 8.73 10^3/uL (3.29-11.43)
[2024-12-13 05:17] LABS: Bilirubin Urine Negative (Negative); Blood Urine Negative (Negative); Glucose Urine UA Negative (Normal); Ketones Urine Negative (Negative); Leukocyte Esterase Urine Negative (Negative); Nitrate Urine Negative (Negative); Protein Urine Negative (Negative); Specific Gravity, Urine 1.009 (1.005-1.030); Urine Appearance Clear (CLEAR); Urine Color Yellow (Yellow); Urobilinogen Urine 0.2 mg/dL (Negative); pH Urine 6.5 (5-7)
[2024-12-13 05:22] LABS: Add Urine Microscopic? YES; Bacteria Urine None Seen /hpf; Hyaline Casts Urine 0-4 /lpf; RBC Urine 0-2 /hpf (0-2); Squamous Epithelial Cell Urine 0-5 /hpf (0-5); WBC Urine 0-5 /hpf (0-5)
[2024-12-13 05:30] VITALS: BP 151/88; PULSE 50; RESP 16; O2SAT 97
--- NOTE | 2024-12-13 05:44 | ECG_ITS ---
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 Measurements Intervals [place] Rate: 51 P: 48 AR: 250 QRS: 3 QRSD: 108 T: 79 QT: 477 QTc: 443 Interpretive Statements SINUS BRADYCARDIA WITH FIRST DEGREE AV BLOCK Compared to ECG 12/03/2023 14:37:34 No significant changes Electronically Signed On 12-14-2024 06:29:57 CDT by Tiffanie Vaughan M.D. [email or web address]
[2024-12-13 05:49] LABS: Alanine Aminotransferase 14 U/L (0-41); Albumin Level 4.2 g/dL (3.5-5.2); Alkaline Phosphatase 75 U/L (40-130); Anion Gap 17.3 (5-19); Aspartate Amino Transferase 15 U/L (0-40); Blood Urea Nitrogen 16 mg/dL (8-23); Calcium 9.5 mg/dL (8.5-10.5); Carbon Dioxide 22 mmol/L (22-29); Chloride 102 mmol/L (98-107); Creatinine Clr Calc Pharmacy 94.9714; Globulin 2.8 g/dL (1.3-4.6); Glucose 120 mg/dL (65-115); Magnesium 2.1 mg/dL (1.7-2.3); NT Pro B Type Natriuretic Pept 69 pg/mL (0-450); Osmolality Calculated 286 mOsm/kg (285-295); Potassium 4.3 mmol/L (3.5-5.1); Sodium 137 mmol/L (136-145); Total Bilirubin 0.3 mg/dL (0.15-1.2)
[2024-12-13 06:18] VITALS: BP 139/84; PULSE 52; RESP 16; O2SAT 95
== END 2024-12-13 06:25 | disposition home or self-care (01) ==
PROVIDERS: Emergency Provider Emergency Medicine; PCP Family Medicine
DX: R00.1 Bradycardia, unspecified (principal); Z79.01 Long term (current) use of anticoagulants
CPT/HCPCS: 70450; 71045; 80053; 81001; 83735; 83880; 85025; 93005; 99285

== ENCOUNTER → 2025-04-06 13:01 | Outpatient (BNVA) | payer MEDICARE, SELFPAY | PROVIDERS: PCP Family Medicine; Visit Provider Nurse Practitioner Family | DX: L82.1 Other seborrheic keratosis (principal); L81.4 Other melanin hyperpigmentation; L57.8 Other skin changes due to chronic exposure to nonionizing radiation; D22.5 Melanocytic nevi of trunk; Z08 Encounter for follow-up examination after completed treatment for malignant neoplasm; Z85.820 Personal history of malignant melanoma of skin; L82.0 Inflamed seborrheic keratosis; L53.8 Other specified erythematous conditions; R20.8 Other disturbances of skin sensation; R58 Hemorrhage, not elsewhere classified; Z78.9 Other specified health status; L29.89 Other pruritus; D48.5 Neoplasm of uncertain behavior of skin; L57.0 Actinic keratosis | CPT/HCPCS: 11102; 17000; 17110; 99203 ==

== ENCOUNTER → 2025-04-28 12:13 | Outpatient (BNVA) | payer MEDICARE, SELFPAY | PROVIDERS: PCP Family Medicine; Visit Provider Dermatology | DX: L30.9 Dermatitis, unspecified (principal); C44.42 Squamous cell carcinoma of skin of scalp and neck; B35.1 Tinea unguium | CPT/HCPCS: 99213 ==

== ENCOUNTER → 2025-05-04 11:35 | Outpatient (BNVA) | payer MEDICARE, SELFPAY | PROVIDERS: PCP Family Medicine; Visit Provider Dermatology | DX: C44.42 Squamous cell carcinoma of skin of scalp and neck (principal); C44.329 Squamous cell carcinoma of skin of other parts of face | CPT/HCPCS: 99212 ==

== ENCOUNTER → 2025-05-09 09:43 | Outpatient (BNVA) | payer MEDICARE, SELFPAY | PROVIDERS: PCP Family Medicine; Visit Provider Dermatology | DX: Z48.817 Encounter for surgical aftercare following surgery on the skin and subcutaneous tissue (principal) | CPT/HCPCS: 99212 ==

== ENCOUNTER → 2025-05-17 09:35 | Outpatient (BNVA) | payer MEDICARE, SELFPAY | PROVIDERS: PCP Family Medicine; Visit Provider Podiatrist Foot & Ankle Surgery | DX: L84 Corns and callosities (principal) | CPT/HCPCS: 99213 ==